=== PATIENT | female | born 1990 | race Caucasian/White ===

== ENCOUNTER 2022-06-05 12:25 | Emergency (ER) | payer BC ==
[2022-06-05 13:06] LABS: Bilirubin Negative (Negative); Blood, Urine Large (Negative); Clarity Hazy (Clear); Glucose, Urine (Dipstick) Negative (Negative); Ketone, Urine Negative (Negative); Leukocyte Trace (Negative); Nitrite Positive (Negative); Protein, Urine (Dipstick) Negative (Neg-Trace); Urobilinogen 0.2 mg/dL (Less than 2)
[2022-06-05 13:08] LABS: Pregnancy Test - Urine (BHCG) Negative (Negative); Pregu Control Background? CLEAR/WHITE (CLR/WHITE); Pregu Control Bar Appear? YES (CONTROL BAR)
[2022-06-05] MEDS ORDERED: Ondansetron PF 4 MG/2 ML Vial ONE (13:09)
[2022-06-05] MEDS ORDERED: Sodium Chloride 0.9% 1,000 ML ONE (13:09)
[2022-06-05 13:13] LABS: Bacteria/HPF 1+ HPF (None Seen); RBC/HPF 21-50 HPF (0-3); Squamous Epithelial 0-3 HPF (0-3)
[2022-06-05 13:16] LABS: #Basophils 0.1 thou/uL (0.0-0.2); #Eosinphils 0.1 thou/uL (0.0-0.7); #Lymphocytes 2.5 thou/uL (1.20-3.40); #Monocytes 0.5 thou/uL (0.11-0.59); #Neutrophils 4.2 thou/uL (1.40-6.50); %Basophils 0.9 % (0.0-1.0); %Eosinophils 1.2 % (0.0-10.0); %Lymphocytes 33.7 % (21.0-51.0); %Monocytes 6.5 % (0.0-10.0); %Neutrophils 57.7 % (42.0-75.0); Hemoglobin 14.7 g/dL (12.0-16.0); Mean Corpuscular HGB CONC 32.4 g/dL (32.0-36.0); Mean Corpuscular Volume 86.5 fL (78.0-98.0); Mean Platelet Volume 6.6 fL (7.4-10.4); Platelet Count 333 thou/uL (130-400); RBC Distribution Width 11.7 % (11.5-14.5); Red Blood Cell (RBC) Count 5.25 mill/uL (4.20-5.40); White Blood Cell (WBC) Count 7.3 thou/uL (4.8-10.8)
[2022-06-05 13:31] LABS: ALT (SGPT) 46 U/L (8-55); AST (SGOT) 30 U/L (5-34); Albumin 4.1 g/dL (3.5-5.0); Alkaline Phosphatase 62 U/L (40-110); Anion Gap 12 mmol/L (10-20); BUN (Urea Nitrogen) 11 mg/dL (7.0-18.7); Bilirubin, Total 0.7 mg/dL (0.2-1.2); Calc. Creatinine Clearance 0 mL/min (70-130); Calcium 9.3 mg/dL (7.8-10.44); Carbon Dioxide 26 mmol/L (22-29); Chloride 106 mmol/L (98-107); Estimated GFR 101; Globulin 2.6 g/dL (2.4-3.5); Glucose 93 mg/dL (70-105); Magnesium 2.1 mg/dL (1.6-2.6); Potassium 4.2 mmol/L (3.5-5.1); Protein, Total 6.7 g/dL (6.0-8.3); Sodium 140 mmol/L (136-145)
[2022-06-05] MEDS ORDERED: Ketorolac Tromethamine 30 MG/ML VIAL ONE (13:41)
[2022-06-05] MEDS ORDERED: cefTRIAXone\\ROCEPHIN 500 MG VIAL ONE (14:53)
[2022-06-05] MEDS ORDERED: Doxycycline 100 MG CAP ONE (14:54)
[2022-06-05 15:00] LABS: Wet Prep Clue Cells Clue Cells Absent (None Seen); Wet Prep Pathologist Review Spermatozoa Absent (None Seen); Wet Prep Spermatozoa 2nd Revie Agree with result (None Seen); Wet Prep Trichomonas Trichomonas Absent (None Seen)
[2022-06-07 00:17] LABS: Chlamydia by PCR Not Detected (NotDetected); GC by PCR DETECTED (NotDetected)
== END 2022-06-05 16:05 | disposition home or self-care (01) ==
LOC: MADERS 12:25
DX: N76.0 Acute vaginitis (principal); N20.0 Calculus of kidney; R31.9 Hematuria, unspecified; K21.9 Gastro-esophageal reflux disease without esophagitis; Z79.899 Other long term (current) drug therapy
CPT/HCPCS: 74176; 80053; 81003; 81015; 81025; 83735; 85025; 87086; 87210; 87491; 87591; 96365; 96375; J0696; J1885; J2405; J7050

== ENCOUNTER 2023-06-12 20:25 | Emergency (ER) | payer OTHER ==
[~2023-06-12 20:25] MED LIST: Sodium Chloride 0.9% 1,000 ML BAG ONE
[2023-06-12 21:06] LABS: #Basophils 0.1 thou/uL (0.0-0.2); #Eosinphils 0.1 thou/uL (0.0-0.7); #Lymphocytes 2.3 thou/uL (1.20-3.40); #Monocytes 0.5 thou/uL (0.11-0.59); #Neutrophils 7.3 thou/uL (1.40-6.50); %Basophils 0.8 % (0.0-1.0); %Eosinophils 0.7 % (0.0-10.0); %Lymphocytes 22.2 % (21.0-51.0); %Monocytes 5.3 % (0.0-10.0); Hematocrit 43.2 % (36.0-47.0); Hemoglobin 13.8 g/dL (12.0-16.0); Mean Corpuscular HGB CONC 31.9 g/dL (32.0-36.0); Mean Corpuscular Hemoglobin 27.6 pg (27.0-31.0); Mean Corpuscular Volume 86.5 fl (78.0-98.0); Mean Platelet Volume 6.8 fL (7.4-10.4); Platelet Count 322 10x3/uL (130-400); RBC Distribution Width 13.5 % (11.5-14.5); White Blood Cell (WBC) Count 10.3 10x3/uL (4.8-10.8)
[2023-06-12 21:15] LABS: BHCG - Serum Negative (NEGATIVE); Pregs Control Background? CLEAR/WHITE (CLR/WHITE); Pregs Control Bar Appear? YES (CONTROL BAR)
[2023-06-12 21:25] LABS: ALT (SGPT) 26 U/L (8-55); AST (SGOT) 18 U/L (5-34); Alkaline Phosphatase 59 U/L (40-110); Anion Gap 15 mmol/L (10-20); BUN (Urea Nitrogen) 18 mg/dL (7.0-18.7); Bilirubin, Total 0.7 mg/dL (0.2-1.2); Calc. Creatinine Clearance 0 mL/min (70-130); Calcium 9.1 mg/dL (7.8-10.44); Carbon Dioxide 25 mmol/L (22-29); Chloride 106 mmol/L (98-107); Estimated GFR 85; Globulin 2.6 g/dL (2.4-3.5); Glucose 103 mg/dL (70-105); Magnesium 2.2 mg/dL (1.6-2.6); Potassium 3.6 mmol/L (3.5-5.1); Protein, Total 6.6 g/dL (6.0-8.3); Sodium 142 mmol/L (136-145)
[2023-06-12 21:58] LABS: Acetaminophen Less than 10 mcg/mL (10.0-30.0); Alcohol Less than 10.0 mg/dL (Less than 10); Salicylate Less than 8.0 mg/dL (15.0-30.0)
[2023-06-13 00:02] LABS: Amphetamine Not Detected (NotDetected); Barbiturates Screen Not Detected (NotDetected); Benzodiazepine Screen Detected (NotDetected); Cocaine Metabolite Screen Not Detected (NotDetected); Methadone Not Detected (NotDetected); Methamphetamine Not Detected (NotDetected); Opiate Screen Not Detected (NotDetected); Oxycodone Screen Not Detected (NotDetected); Phencyclidine (PCP) Not Detected (NotDetected); THC/Cannabinoid Screen Not Detected (NotDetected); Tricyclic Screen Not Detected (NotDetected)
[2023-06-13] MEDS ORDERED: Ketorolac Tromethamine 30 MG/ML VIAL ONE (01:00)
[2023-06-13] MEDS ORDERED: diphenhydrAMINE 50 MG/ML VIAL ONE (01:00)
[2023-06-13] MEDS ORDERED: Metoclopramide HCl 10 MG/2 ML VIAL ONE (01:00)
== END 2023-06-13 01:24 | disposition home or self-care (01) ==
LOC: MADERS 20:25
DX: S09.90XA Unspecified injury of head, initial encounter (principal); S40.022A Contusion of left upper arm, initial encounter; R51.9 Headache, unspecified; Y04.2XXA Assault by strike against or bumped into by another person, initial encounter; Y93.89 Activity, other specified
CPT/HCPCS: 70450; 70498; 80053; 80306; 80307; 83735; 84703; 85025; 93005; 96374; 96375; J1200; J1885; J2765; J7050

== ENCOUNTER 2023-06-27 11:29 | Emergency (ER) | payer OTHER ==
[2023-06-27] MEDS ORDERED: Lidocaine 4% Patch ONE (12:20)
[2023-06-27 12:42] LABS: Bilirubin Negative (Negative); Blood, Urine Trace (Negative); Clarity Clear (Clear); Glucose, Urine (Dipstick) Negative (Negative); Ketone, Urine Negative (Negative); Leukocyte Negative (Negative); Nitrite Negative (Negative); Protein, Urine (Dipstick) Negative (Neg-Trace); Urobilinogen 0.2 mg/dL (Less than 2)
[2023-06-27 12:46] LABS: Pregnancy Test - Urine (BHCG) Negative (Negative)
[2023-06-27 12:47] LABS: Pregu Control Background? CLEAR/WHITE (CLR/WHITE); Pregu Control Bar Appear? YES (CONTROL BAR)
[2023-06-27 12:48] LABS: Bacteria/HPF Rare-Few HPF (None Seen); CAUTI Indications for Culture Pelvic or flank pain; RBC/HPF 0-3 HPF (0-3); Squamous Epithelial 0-3 HPF (0-3); WBC/HPF 0-3 HPF (0-3)
[2023-06-27 12:49] LABS: Urine Culture Reflex No No
== END 2023-06-27 13:42 | disposition home or self-care (01) ==
LOC: MADERS 11:29
DX: M54.50 Low back pain, unspecified (principal); K21.9 Gastro-esophageal reflux disease without esophagitis; Z79.899 Other long term (current) drug therapy
CPT/HCPCS: 72220; 81001; 81025

== ENCOUNTER 2023-08-25 15:58 | Emergency (ER) | payer OTHER | END 2023-08-25 16:57 | disposition left against medical advice (07) | LOC: MADERS 15:58 | DX: Z53.21 Procedure and treatment not carried out due to patient leaving prior to being seen by health care provider (principal) ==